=== PATIENT | male | born 1955 | race Caucasian/White ===

== ENCOUNTER → 2021-05-05 | Outpatient (CLI) | payer MEDICARE ==
[2021-04-22 15:00] VITALS: BP 116/77
[~2021-05-05] MED LIST: AMLO-187 PO; CONTRAST GIVEN. MC PRN; ERTA1VIA16 IJ; IOHEXOL 240 MG/ML 50ML VIAL. PO ONE; IOHEXOL 300 MG/ML 100ML VIAL. IV ONE; LOSA1TAB22 PO; VANC125C3 PO
--- NOTE | 2021-05-05 16:43 | RAD ---
CT abdomen and pelvis with contrast PQRS statement: CT scans at this facility use dose reduction including either automated exposure cont rol, iterative reconstructions, and /or weight based radiation dosing via mA and kV modification when appropriate to reduce radiation dose to as low as reasonably achievable. HISTORY: Abdominal abscess. Contrast: Oral contrast and 75 mL Omnipaque 300 intravenous contrast. COMPARISON: CT abdomen April 18, 2021. Abdomen findings: Coronary calcified plaque. Peggy hernia of the upper stomach including the upper gas tric body, cardia and fundus. Lung bases are unremarkable. Chronic compression deformity of L4 verteb ra. Thoracic and lumbar disc disease. Liver 1.5 cm cyst left hepatic lobe stable. Tiny gallstone. At segment 8 of the liver beneath the right diaphragm there is an indeterminate moderate lower hypodense 7 mm lesion image 10 stable. Tiny subcentimeter left hepatic lobe hypodense lesion image 19 indeterm inate, stable. 2 cm oblong cyst left renal upper pole density of 6 unites. Smaller hypodense lesion l eft renal upper pole too small to characterize presumably an additional cyst stable. Right kidney, ad renals, spleen unremarkable. At the distal tail of pancreas image 22 there is an oval soft tissue nod ule measuring 1.8 cm which is stable. No large adenopathy. The colitis inflammatory changes on the pr ior exam have since resolved. No bowel obstruction. No pneumoperitoneum. The appendix is negative. No abdominal fluid. Pelvis findings: There is a percutaneous drainage catheter in the left anterior pelvis region of the space of Retzius within a thick-walled rim-enhancing fluid collection positioned between the left ant erior bladder wall and the anterior abdominal wall, which was present on the prior study, this collec tion measures 5 x 3 cm transaxially, previously measured 11 x 8 cm. There is a separate fluid collect ion along the right anterior pelvis space of Retzius above the bladder and posterior of the abdominal wall draping the medial aspect of the external iliac vessels, this collection measures 6 x 4 cm and has decreased, previously measured 9 x 4 cm. Prostate absent. Rectum and bones are unremarkable. Decr eased anterior bladder wall thickening and edema since the prior study. IMPRESSION: 1. Percutaneous drainage catheter with some decompression of the left anterior pelvic rim enhancing l oculated fluid collection as described above. 2. Separate loculated fluid collection within the right anterior pelvis without a drainage catheter h as also decreased in size since prior study. 3. Inflammatory changes of colitis since the prior exam has since resolved. 4. The inflammatory anterior urinary bladder wall thickening and edema on the prior exam has decrease d. 5. Indeterminate 1.8 cm solid nodule of the distal tail the pancreas, stable. This could be an intrap ancreatic accessory spleen. A pancreatic neoplastic mass lesion is not excluded. This may be further assessed with outpatient MR imaging. 6. Other incidental findings are stable as described above. Electronically signed by: Harish Tripp MD (05/05/2021 4:41 PM) [facility]
== END ==
LOC: CT 08:34
PROVIDERS: ATTEND Internal Medicine Infectious Disease
DX: L02.211 Cutaneous abscess of abdominal wall (principal); K52.89 Other specified noninfective gastroenteritis and colitis; K76.89 Other specified diseases of liver; I25.10 Atherosclerotic heart disease of native coronary artery without angina pectoris; N28.89 Other specified disorders of kidney and ureter; M48.56XA Collapsed vertebra, not elsewhere classified, lumbar region, initial encounter for fracture; M51.86 Other intervertebral disc disorders, lumbar region; M51.84 Other intervertebral disc disorders, thoracic region; Z96.9 Presence of functional implant, unspecified
CPT/HCPCS: 74177; Q9966; Q9967